=== PATIENT | male | born 1995 | race African-American/Black ===

== ENCOUNTER 2023-10-15 15:45 | Emergency (ER) | payer OTHER ==
[~2023-10-15] VITALS: Ht 185.4 cm; Wt 102.5 kg
[2023-10-15 15:47] VITALS: BP 116/69; PULSE 64; RESP 16; TEMP 99.1; O2SAT 100
[2023-10-15] MEDS: ACETAMINOPHEN EXTRA STRENGTH 500 MG TAB PO ONE (16:34)
[2023-10-15 16:51] LABS: BASOPHILS % (AUTO) 0.7 % (0.0-2.0); EOSINOPHILS # (AUTO) 0.3 K/uL (0-0.4); EOSINOPHILS % (AUTO) 5.2 % (0.0-4.0); HEMATOCRIT 44.5 % (36-52); HEMOGLOBIN 15.7 g/dL (12.0-18.0); LYMPHOCYTES # (AUTO) 2.2 K/uL (2.0-11.5); LYMPHOCYTES % (AUTO) 43.3 % (20.5-51.1); MEAN CORPUSCULAR HEMOGLOBIN 29 pg (27-31); MEAN CORPUSCULAR HGB CONC 35 g/dL (33-37); MEAN CORPUSCULAR VOLUME 81.5 fL (80-94); MONOCYTES # (AUTO) 0.6 K/uL (0.8-1.0); MONOCYTES % (AUTO) 11.2 % (1.7-9.3); NEUTROPHILS % (AUTO) 39.6 % (42.2-75.2); PLATELET COUNT (AUTO) 152 K/uL (140-450); RED BLOOD CELL COUNT(AUTO) 5.47 MIL/uL (4.20-6.10); RED CELL DISTRIBUTION WIDTH 14.1 % (11.6-13.7); WHITE BLOOD COUNT (AUTO) 5.2 K/uL (4.8-10.8)
[2023-10-15 17:30] LABS: TOTAL BILIRUBIN 2.4 mg/dL (0.0-1.0); TOTAL PROTEIN, SERUM 8.3 g/dL (6.4-8.2)
[2023-10-15 17:33] LABS: ANION GAP 12.3 (8-16); CALCIUM 9.6 mg/dL (8.5-10.1); CARBON DIOXIDE 29.6 mmol/L (21-32); CREATININE 1.1 mg/dL (0.6-1.3); POTASSIUM 3.9 mmol/L (3.5-5.1)
== END 2023-10-15 20:37 | disposition left against medical advice (07) ==
LOC: MED 15:45
DX: M04.1 Periodic fever syndromes (principal); R51.9 Headache, unspecified; M79.10 Myalgia, unspecified site; R42 Dizziness and giddiness; Z79.899 Other long term (current) drug therapy
CPT/HCPCS: 36415; 80048; 80076; 83615; 85007; 85025; 85651; 99283

== ENCOUNTER 2023-10-16 15:08 | Emergency (ER) | payer OTHER ==
[~2023-10-16] VITALS: Ht 185.4 cm; Wt 101.6 kg
[2023-10-16 15:14] VITALS: BP 119/77; PULSE 80; RESP 18; TEMP 98.3; O2SAT 98
[2023-10-16 17:57] VITALS: BP 119/77; PULSE 80; RESP 18; TEMP 98.3; O2SAT 98
== END 2023-10-16 17:56 | disposition home or self-care (01) ==
LOC: MED 15:08
DX: B34.9 Viral infection, unspecified (principal)
CPT/HCPCS: 99281